=== PATIENT | female | born 1990 | race Caucasian/White ===

== ENCOUNTER 2019-07-13 06:27 | Emergency (ER) | payer OTHER, SELFPAY ==
[~2019-07-13] VITALS: Ht 165.1 cm; Wt 72.6 kg
--- NOTE | 2019-07-13 06:27 | NUR ---
PT KVNG CLEMENTSS. TAKEN TO TENT
[2019-07-13 06:37] VITALS: BP 126/95
--- NOTE | 2019-07-13 06:47 | NUR ---
29 Y/O FEMALE BIBA BLS, WITH C/O PRODUCTIVE COUGH W/ "BEIGE" PHLEGM, SORE THROAT, HEADACHE, AND CHILLS 7/10 PAIN IN UPPER AND LOWER BACK, AND HEAD. PT STATES HER SX STARTED X 2DAYS AGO. DENIES N/V/D, DENIES SOB. R/R EQUAL, AND UNLABORED, BILATERAL LUNG LOBES CTA. DENIES BEING AROUND KNOWN COVID, OR SICK PATIENT. [place]EL [place]. O2: 98%. NO COUGH, OR SOB NOTED. PT STATES SHE HAS BEEN IN BED FOR THE PAST 2 DAYS, AND HASN'T REALLY EATEN OR DRINKEN ANY FOOD, OR LIQUIDS. BED IN LOW POSITION, SIDE RAIL X 1, WILL CONTINUE TO MONITOR. ALLERGY: LATEX, NKDA NO PMH
--- NOTE | 2019-07-13 06:57 | NUR ---
PT MOVED TO BED 9
--- NOTE | 2019-07-13 07:00 | NUR ---
CALLED RAD FOR CHEST X RAY
[2019-07-13] MEDS: ACETAMINOPHEN 325 MG TAB PO ONE (07:04)
--- NOTE | 2019-07-13 07:04 | NUR ---
X-Ray at bedside.
--- NOTE | 2019-07-13 07:15 | NUR ---
Pt report received from LEÓN Estrada. Transfer of care at this time.
--- NOTE | 2019-07-13 07:50 | NUR ---
COVID SWAB OBTAINED AT BEDSIDE AND SENT TO THE LAB.
[2019-07-13 07:53] LABS: APPEARANCE,URINE HAZY (CLEAR); BILIRUBIN,URINE NEGATIVE (NEGATIVE); BLOOD, URINE NEGATIVE (NEGATIVE); COLOR,URINE YELLOW (YELLOW); LEUKOCYTE ESTERASE ,URINE 1+ (NEGATIVE); NITRITE, URINE NEGATIVE (NEGATIVE); UGLUCOSE NEGATIVE (NEGATIVE)
[2019-07-13 08:05] VITALS: BP 111/89
--- NOTE | 2019-07-13 08:05 | NUR ---
Patient discharged with v/s stable. Written and verbal after care instructions given and explained. Patient alert, oriented and verbalized understanding of instructions. Ambulatory with steady gait. All questions addressed prior to discharge. ID band removed. Patient advised to follow up with PMD. Rx of Tessalon and Albuterol given. Patient educated on indication of medication including possible reaction and side effects. Opportunity to ask questions provided and answered. covid package provided to patient.
[2019-07-13 08:45] LABS: RBC,URINE 0-5 /HPF (0-5)
== END 2019-07-13 08:05 | disposition home or self-care (01) ==
LOC: MED 06:27 → EEVIPCON 06:27 → MED 08:05
DX: R50.9 Fever, unspecified (principal); Z20.828 Contact with and (suspected) exposure to other viral communicable diseases; R05 Cough; Z91.040 Latex allergy status
CPT/HCPCS: 36415; 71045; 81001; 81025; 87086; 87635; 99284; Q0092